=== PATIENT | male | born 1945 | race Caucasian/White ===

== ENCOUNTER 2016-06-02 07:57 | Day surgery (SDC) | payer MEDICARE, OTHER ==
[2016-06-02] MEDS ORDERED: Dextrose 5%-Lactated Ringers 1,000 ML IV SCH (08:45)
[2016-06-02] MEDS ORDERED: Propofol 200 MG/20 ML SDV ONE ×2 (09:14→10:21)
[2016-06-02] MEDS ORDERED: Midazolam 1 MG/ML 2 ML SDV ONE (09:14)
[2016-06-02] MEDS ORDERED: fentaNYL 100 MCG/2 ML SDV ONE (09:14)
[2016-06-02] MEDS ORDERED: Glycopyrrolate 0.2 MG/ML 2 ML SYRINGE IVPUSH ONE (09:15)
[2016-06-02] MEDS ORDERED: Lactated Ringers 1,000 ML ONE (10:07)
[2016-06-02] MEDS ORDERED: Pantoprazole 40 MG Vial IVPUSH ONE ×2 (10:45→10:48)
--- NOTE | 2016-06-09 22:44 | OR ---
DATE OF PROCEDURE: 06/02/2016 PREOPERATIVE DIAGNOSES: 1. Epigastric pain. 2. Indications for screening colonoscopy. POSTOPERATIVE DIAGNOSES: 1. Epigastric pain associated with large hiatal hernia and ulcerated esophagitis. 2. Mild antral gastritis. 3. Colonic diverticulosis. 4. Single colon polyp (25 cm from dentate line). OPERATIVE PROCEDURES: 1. Esophagogastroduodenoscopy with:. a. Biopsy of the esophagogastric junction for histologic evaluation. b. Biopsies of antrum for CLOtest. 2. Flexible colonoscopy with polypectomy by snare technique. ANESTHESIA: IV sedation. INDICATION FOR PROCEDURE: This 70-year-old male presenting with some ongoing epigastric discomfort, presently he is not on any antisecretory medication. Plan is to proceed with upper GI endoscopy with biopsies as indicated. Additionally, the patient meets criteria for screening colonoscopy. The plan will be to proceed with the upper and lower endoscopy with biopsies and/or polypectomy as indicated. Potential risks including bleeding and perforation were discussed, and the patient wishes to proceed. DETAILS OF PROCEDURE: The patient was taken to the operating room and placed in the left lateral decubitus position. IV sedation was administered, after which the upper GI endoscope was passed orally through the length of the esophagus into the stomach with retroflexion view of the fundus, and thereafter through the pyloric channel and into the proximal duodenum. Findings included a normal hypopharynx, larynx, upper esophageal sphincter, and esophageal body. At the EG junction, there was a fairly large hiatal hernia measuring around 5 cm. This was associated with marked ulcerated esophagitis. There were 3 columns of esophagitis that has some ulceration and fibrinous material over the upper extension from the gastroesophageal junction and mucosal line was also evident suspicious for some possible Sparks's esophagus. No stricture or gross evidence of neoplasia was seen, especially there was no plaquing seen at any point in the area around the esophagogastric junction. Proximal stomach apart from the hiatal hernia was unremarkable. There was some mild redness in the antrum consistent with some mild antral gastritis. No erosions or ulcers were seen, and the pyloric channel and duodenum junction of the third and fourth portions were unremarkable. At this point, biopsies were obtained from the antrum and sent for CLOtest for H. pylori. Multiple biopsies were then obtained from the esophagogastric junction targeting the ulcerated areas and sent for histologic evaluation. No bleeding from the biopsy sites was seen and the gastroscope then removed. Attention was then taken to the colonoscopy. Initial digital rectal examination was unremarkable. Colonoscope was passed into the rectum with retroflexion revealing uncomplicated hemorrhoidal columns. The scope was eventually passed to the cecum. The prep was fairly good. There were a few uncomplicated diverticula on the left side of the colon and then a single polyp measuring around 2 or 3 mm, located at from the dentate line, i.e. in the mid sigmoid colon. The polyp was encircled and spaced and excised by means of snare technique. Two separate pieces eventually came through the suction and were sent as a specimen. Good hemostasis was noted at the polypectomy site. No further problems were noted at this point, and the patient was taken to the recovery room in satisfactory condition. The plan at this point will be to begin the patient on Protonix. He will be given 40 mg of Protonix IV in the recovery room and then begin 40 mg orally daily. We will see the patient back in 2 weeks for recheck to see how well we are doing with regard to the medical management and discussed computer terminal operator treatment options. We will review the colon pathology and establish the next colonoscopy timing at that appointment. Jerardo Guillen MD /[id number]
== END 2016-06-02 11:45 | disposition home or self-care (01) ==
LOC: JP.SDS 07:57
PROVIDERS: ATTEND Surgery
PROC: 0DBE8ZX Excision of Large Intestine, Via Natural or Artificial Opening Endoscopic, Diagnostic (ICD-10-PCS; principal; 2016-06-02)
PROC: 0DB48ZX Excision of Esophagogastric Junction, Via Natural or Artificial Opening Endoscopic, Diagnostic (ICD-10-PCS; 2016-06-02)
PROC: 0DB68ZX Excision of Stomach, Via Natural or Artificial Opening Endoscopic, Diagnostic (ICD-10-PCS; 2016-06-02)
DX: Z12.11 Encounter for screening for malignant neoplasm of colon (principal); K63.5 Polyp of colon; K57.90 Diverticulosis of intestine, part unspecified, without perforation or abscess without bleeding; K21.9 Gastro-esophageal reflux disease without esophagitis; K29.70 Gastritis, unspecified, without bleeding; K44.9 Diaphragmatic hernia without obstruction or gangrene; R91.1 Solitary pulmonary nodule
CPT/HCPCS: 43239; 45385; 71250; 87081; 88305; 88312; C9113; J2250; J2704; J3010; J7042; J7120